=== PATIENT | male | born 1950 | race Caucasian/White ===

== ENCOUNTER 2020-06-13 18:25 | Emergency (ER) | payer BC, OTHER ==
[~2020-06-13] VITALS: Ht 175.3 cm; Wt 72.6 kg
[2020-06-13 18:37] VITALS: BP_SYST 147
[2020-06-13] MEDS ORDERED: BACITRACIN 1 GM OINT TP ONE (19:30)
[2020-06-13] MEDS ORDERED: DIPH-TET-PERTUS Vaccine 0.5 ML VIAL (ADACEL) I.M. ONE (19:45)
[2020-06-13 20:45] VITALS: BP_SYST 122
== END 2020-06-13 20:45 | disposition home or self-care (01) ==
LOC: SED 18:25
DX: S40.011A Contusion of right shoulder, initial encounter (principal); S00.81XA Abrasion of other part of head, initial encounter; M25.552 Pain in left hip; M25.561 Pain in right knee; Z88.1 Allergy status to other antibiotic agents; W01.10XA Fall on same level from slipping, tripping and stumbling with subsequent striking against unspecified object, initial encounter; Y93.89 Activity, other specified; Y92.89 Other specified places as the place of occurrence of the external cause; Y99.8 Other external cause status
CPT/HCPCS: 70450-TC; 70486-TC; 73502; 73560-TC; 90715; 99285